=== PATIENT | male | born 1975 | race Caucasian/White ===

== ENCOUNTER 2017-03-15 02:43 | Emergency (ER) | payer SELFPAY ==
--- NOTE | 2017-03-15 03:02 | ERNOTE ---
Abdominal HPI - General Chief Complaint: Abdominal Pain Time Seen by Provider: 03/15/17 03:02 Source: patient, RN notes reviewed Exam Limitations: no limitations - Immun/Allergies/Home Medications Immunizatons: IMMUNIZATION HX Immunizations Up to Date Yes History of Influenza Vaccine No Hx Pneumococcal Vaccination No Allergies/Adverse Reactions: Allergies No Known Allergies Allergy (Unverified 03/15/17 02:55) Home Medications: HOME MEDICATIONS Lisinopril 20 mg PO DAILY #30 tablet 03/15/17 [Last Taken Unknown] Magnesium Citrate [Citrate of Magnesia] 300 ml PO ONCE #1 btl 03/15/17 [Last Taken Unknown] Omeprazole Magnesium [Prilosec Otc] 20 mg PO 03/15/17 [Last Taken Unknown] - History of Present Illness Narrative: Patient with abdominal pain since yesterday early afternoon. Still having vomiting. Has uncontrolled diabetes and hypertension, for which he has taken nothing for the last five years. Has had only a small bowel movement yesterday, with nothing for several days before that. Timing: constant, getting worse Quality: moderate, cramping, fullness Activities at Onset: none Modifying Factors - (Improves): Present: rest Modifying Factors - (Worsens): Present: sitting up, movement Associated Symptoms: Present: denies symptoms Review of Systems - Review of Systems Constitutional: Absent: recent illness, fever, chills EYE: Absent: eye pain ENT: Absent: ear pain, sore throat Respiratory: Absent: shortness of breath, cough Cardiology: Absent: chest pain, palpitations Gastrointestinal/Abdominal: Present: nausea, vomiting, constipation, abdominal pain. Absent: diarrhea Genitourinary: Absent: frequency, pain, dysuria Musculoskeletal: Present: no symptoms reported Skin: Present: no symptoms reported Neurological: Present: no symptoms reported Endocrine: Present: increased thirst Hematologic/Lymphatic: Present: no symptoms reported Psych: Present: depressed - Patient's Past Medical History Patient History - Medical: Anxiety, Diabetes Type 2, GERD Patient History - Cardiac/Respiratory: Hypertension Patient History - Cancer: No Hx of Cancer Patient History - Surgical Procedures: Orthopedic Patient History - Other: None - Social History Living Situations: parents Psych History: Hx of Anxiety Smoking Status: Never smoker Have you smoked in the past 12 months: No Do you dip or chew tobacco: No Alcohol Use: none Drug Use: none - Immunizations Immunizations Up to Date: Yes Hx Pneumococcal Vaccination: No History of Influenza Vaccine: No Physical Exam - Physical Exam General Appearance: Present: wd/wn, alert, moderate distress Head Exam: Present: normal inspection, no evidence of injury Eye Exam: Normal inspection: bilateral, PERRL: bilateral, EOMI: bilateral Ears, Nose, Throat: Present: normal ENT inspection, normal pharynx Neck: Present: normal inspection, nontender Respiratory: Present: no respiratory distress, normal breath sounds, no accessory muscle use, lungs clear Cardiovascular/Chest: Present: regular rate, rhythm, no murmur, normal peripheral pulses Gastrointestinal/Abdominal: Present: nontender, nondistended, soft, abnormal bowel sounds - decreased. Absent: normal bowel sounds Back Exam: Present: normal inspection, normal range of motion, no CVA tenderness , no vertebral tenderness Extremity Exam: Present: normal inspection, non-tender, normal range of motion, pedal edema - bilaterally Neurological Exam: Present: alert, oriented, normal mood/affect Skin Exam: Present: diaphoresis, pallor ED Progress - Results and Orders Patient's Lab Results:: I have reviewed the patient's lab results. Results and Orders: Hgb A1c shows terminal clerk uncontrolled blood sugars. - Vital Signs Patient's Vital Signs:: I have reviewed the patient's vital signs. Vital Signs: Vital Signs 03/15/17 02:48 Temperature 36.4 C L Pulse Rate 96 Respiratory 16 Rate Blood Pressure 183/110 O2 Sat by Pulse 95 Oximetry - Progress/Reassessment Chief Complaint: Abdominal Pain Plan - Plan Plan: Discussed at length with the patient about his uncontrolled diabetes, abdominal pain and constipation. I suspect a combination of diabetes, gastroenteritis and constipation. Counseled patient to follow up with whatever doctor helped him to feel good about trying to take care of himself and to get better care of his diabetes. Departure Clinical Impression: Gastroenteritis, Constipation by delayed colonic transit Diabetes type 2, uncontrolled Qualifiers: Diabetes mellitus complication status: with hyperglycemia Diabetes mellitus long-term insulin use: without terminal clerk use Qualified Code(s): E11.65 - Type 2 diabetes mellitus with hyperglycemia Hypertension Qualifiers: Hypertension type: essential hypertension Qualified Code(s): I10 - Essential ( primary) hypertension - Departure Disposition: Home self-care Condition: Good Instructions: Insulin Treatment for Diabetes, Diabetes and Foot Care, Constipation, Adult, [id number], Diabetes and Sick Day Management, Hyperglycemia, [id number], Rehydration, Adult Referrals: Internal Medicine [Provider Group] (Please find and establish with a local physician for further evaluation and treatment.) Prescriptions: Lisinopril 20 mg PO DAILY #30 tablet Magnesium Citrate [Citrate of Magnesia] 300 ml PO ONCE #1 btl
[2017-03-15 03:07] LABS: Urine Bilirubin Negative (NEGATIVE); Urine Blood Negative /ul (NEGATIVE); Urine Ketone Large mg/dL (NEGATIVE); Urine Nitrite Negative (NEGATIVE); Urine Protein 15 mg/dL (NEGATIVE); Urine Specific Gravity >=1.030 SP.GR. (1.005-1.030); Urine Urobilinogen Normal (NORMAL)
[2017-03-15 03:25] LABS: Hematocrit 46.4 % (42.0-52.0); Mean Cell Volume 85.3 fl (78-100); Mean Corpuscular Hemoglobin 29.4 pg (27-31); Mean Corpuscular Hgb Conc 34.5 g/dl (32-36); Mean Platelet Volume 11.7 fl (6.0-9.5); Neutrophil # 12.5 K/mm3 (1.3-6.0); Neutrophil % 82.1 % (42-75.0); Platelet Count 235 K/mm3 (150-450); Red Blood Count 5.44 M/mm3 (4.7-6.0); Red Cell Distribution Width 12.2 % (11.5-14.0); White Blood Count 15.3 K/mm3 (4.0-10.5)
[2017-03-15 03:32] LABS: Urine Appearance Clear; Urine Color Yellow
[2017-03-15 03:33] LABS: Urine Bacteria TRACE; Urine RBC None Seen /hpf (0-5); Urine WBC 0-5 /hpf (0-5)
[2017-03-15 03:36] LABS: Cocaine Ur Negative (NEGATIVE); Urine Barbiturate Negative (NEGATIVE); Urine Benzodiazepines Negative (NEGATIVE); Urine Opiates Negative (NEGATIVE); Urine PCP Negative (NEGATIVE); Urine THC Negative (NEGATIVE)
[2017-03-15 03:39] LABS: Albumin * 4.3 gm/dl (3.4-5.0); Anion Gap 16.3 mmol/L (6.8-13.8); BUN/Creatinine Ratio 16.7 (9.0-21.6); Ca. Corrected For Albumin 8.4 mg/dL (8.4-10.2); Carbon Dioxide 26.4 mmol/L (24-32.6); Potassium 3.7 mmol/L (3.4-4.6); Total Protein 8.5 gm/dL (6.2-8.2)
[2017-03-15] MEDS ORDERED: DIATRIZOATE MEGLUMINE, SODIUM 30 ML BTL PO ONE (03:47)
[2017-03-15] MEDS ORDERED: DIATRIZOATE MEGLUMINE, SODIUM 30 ML BTL ONE ×2 (03:47→05:27)
[2017-03-15] MEDS ORDERED: ONDANSETRON HCL/PF 2 MG/ML VIAL IV ONE (04:00)
[2017-03-15] MEDS ORDERED: ONDANSETRON HCL/PF 2 MG/ML VIAL ONE (04:01)
[2017-03-15 04:14] LABS: Hemoglobin A1C 10.8 % (4.00-6.0)
[2017-03-15] MEDS ORDERED: MORPHINE SULFATE 4 MG/ML SYRG IV ONE (04:33)
[2017-03-15] MEDS ORDERED: MORPHINE SULFATE 4 MG/ML SYRG ONE (04:35)
[2017-03-15] MEDS ORDERED: PROMETHAZINE HCL 25 MG/ML AMPUL IM ONE (05:22)
[2017-03-15] MEDS ORDERED: PROMETHAZINE HCL 25 MG/ML AMPUL ONE (05:22)
[2017-03-15] MEDS ORDERED: LISINOPRIL 10 MG TABLET PO ONE (05:50)
[2017-03-15] MEDS ORDERED: LISINOPRIL 10 MG TABLET ONE (05:50)
[2017-03-15 08:26] VITALS: BP 157/82
== END 2017-03-15 08:28 | disposition home or self-care (01) ==
LOC: ER 02:43
DX: K52.9 Noninfective gastroenteritis and colitis, unspecified (principal); K59.01 Slow transit constipation; E11.65 Type 2 diabetes mellitus with hyperglycemia; I10 Essential (primary) hypertension
CPT/HCPCS: 36415; 74020; 74177; 80053; 80307; 81001; 82150; 83036; 83690; 85025; 96372; 96374; 96375; 99284; J2405

== ENCOUNTER 2017-03-16 15:45 | Observation (INO) | payer SELFPAY ==
[2017-03-16] MEDS ORDERED: ONDANSETRON HCL/PF 2 MG/ML VIAL IV ONE (16:16)
[2017-03-16] MEDS ORDERED: NORMAL SALINE 1,000 ML IV ONE ×2 (16:16→17:57)
--- NOTE | 2017-03-16 16:17 | ERNOTE ---
Abdominal HPI - Narrative Date of Service: 03/16/17 - General Chief Complaint: Diabetes Related Problem Time Seen by Provider: 03/16/17 16:05 Source: patient, family, RN notes reviewed Exam Limitations: clinical condition - Immun/Allergies/Home Medications Immunizatons: IMMUNIZATION HX Immunizations Up to Date Yes History of Influenza Vaccine No Hx Pneumococcal Vaccination No Allergies/Adverse Reactions: Allergies No Known Allergies Allergy (Verified 03/16/17 15:54) Home Medications: HOME MEDICATIONS Lisinopril 20 mg PO DAILY #30 tablet 03/15/17 [Last Taken Unknown] Omeprazole Magnesium [Prilosec Otc] 20 mg PO 03/15/17 [Last Taken Unknown] - Pain Score Pain Score #1 Pain Score: 8 Abdominal Pain Onset Location: epigastric Pain Radiation: no radiation - History of Present Illness Narrative: Yogesh is a 41 year old male who returns to the ED with abdominal pain and vomiting after being seen early yesterday morning. His symptoms started on the afternoon of 03/14 and have persisted since. He has a 15,[address] showed mild thickening of the lower esophagus and stomach, as well as moderate stool retention. Despite having oral contrast for his CT scan and magnesium citrate, he has only passed a few small stools. He did not eat at all yesterday and has eaten very little today. Date (Duration): 03/14/17 Timing: constant Quality: severe, aching Activities at Onset: none Prior Abdominal Problems: Present: none Prior Treatment: Present: recently seen, treated by physician. Absent: currently on antibiotics Review of Systems - Review of Systems Constitutional: Present: fatigue, malaise EYE: Present: no symptoms reported ENT: Present: no symptoms reported Respiratory: Absent: shortness of breath, cough Cardiology: Absent: chest pain, palpitations, syncope Gastrointestinal/Abdominal: Present: nausea, vomiting, abdominal pain, eating less, drinking less. Absent: diarrhea Genitourinary: Absent: dysuria, hematuria Musculoskeletal: Absent: back pain, muscle pain Skin: Absent: rash, lesions Neurological: Present: dizziness/light-headedness. Absent: headache Endocrine: Present: no symptoms reported Hematologic/Lymphatic: Present: no symptoms reported Psych: Present: no symptoms reported - Patient's Past Medical History Patient History - Medical: Anxiety, Diabetes Type 2, GERD, Obesity Patient History - Cardiac/Respiratory: Hypertension Patient History - Cancer: No Hx of Cancer Patient History - Surgical Procedures: Orthopedic Patient History - Other: None - Social History Living Situations: home Psych History: Hx of Anxiety - Immunizations Immunizations Up to Date: Yes Hx Pneumococcal Vaccination: No History of Influenza Vaccine: No Physical Exam - Physical Exam General Appearance: Present: wd/wn, alert, moderate distress, obese Respiratory: Present: no respiratory distress, normal breath sounds, no accessory muscle use, lungs clear Cardiovascular/Chest: Present: no murmur, normal peripheral pulses, tachycardia Gastrointestinal/Abdominal: Present: normal bowel sounds, nondistended, soft, tenderness - Upper abdomen Back Exam: Present: normal inspection, no CVA tenderness Extremity Exam: Present: normal inspection, normal range of motion, no edema Neurological Exam: Present: alert, oriented, normal mood/affect, no motor/ sensory deficits Skin Exam: Present: diaphoresis, pallor ED Progress - Results and Orders Patient's Lab Results:: I have reviewed the patient's lab results. Results and Orders: Laboratory Tests 03/16/17 03/16/17 03/16/17 16:26 16:26 16:26 WBC 17.1 H RBC 5.83 Hgb 17.2 Hct 50.1 Plt Count 273 Neutrophils % 83.2 H Neutrophils # 14.2 H Sodium 135 Potassium 4.0 Chloride 95 L Carbon Dioxide 30.4 Anion Gap 13.6 BUN 24 H D Creatinine 0.88 Random Glucose 261 H Lactic Acid, Venous 1.7 Total Bilirubin 1.3 H AST 18 ALT 36 Alkaline Phosphatase 88 Amylase 32 Lipase 76 Urine Color Urine Appearance Urine pH Ur Specific [place] Urine Protein Urine Glucose (UA) Urine Ketones Urine Blood Urine Nitrate Urine Bilirubin Urine Ictotest Prot Sulfosalicylic Acd Urine Urobilinogen Ur Leukocyte Esterase Urine RBC Urine WBC Ur Epithelial Cells Urine Bacteria Urine Mucus Serum Ketones Positive - 10mg/dl H 03/16/17 16:32 WBC RBC Hgb Hct Plt Count Neutrophils % Neutrophils # Sodium Potassium Chloride Carbon Dioxide Anion Gap BUN Creatinine Random Glucose Lactic Acid, Venous Total Bilirubin AST ALT Alkaline Phosphatase Amylase Lipase Urine Color Estela Urine Appearance Slightly cloudy Urine pH 6.0 Ur Specific [place] 1.025 Urine Protein 15 H Urine Glucose (UA) >=1000 H Urine Ketones Large Urine Blood Negative Urine Nitrate Negative Urine Bilirubin 1 H Urine Ictotest Negative Prot Sulfosalicylic Acd 1+ Urine Urobilinogen Normal Ur Leukocyte Esterase Negative Urine RBC None seen Urine WBC 0-5 Ur Epithelial Cells 0-5 Urine Bacteria Trace Urine Mucus Trace Serum Ketones - Vital Signs Patient's Vital Signs:: I have reviewed the patient's vital signs. Vital Signs: Vital Signs 03/16/17 03/16/17 15:51 16:13 Temperature 36.6 C Pulse Rate 101 H 100 Respiratory 20 Rate Blood Pressure 186/101 O2 Sat by Pulse 96 Oximetry - X-Ray X-Ray #1 X-Ray: abdomen Interpretation: Reviewed by me X-ray Comments: Technique: Abdominal series (4 views) Comparison: CT dated March 15, 2017. Findings: Lung bases are clear. Scattered stool retention. The contrast column has progressed into the colon. No evidence of bowel obstruction. No pneumoperitoneum. No signs of mass or mass effect. No obvious urolithiasis. Degenerative changes. Impression: No evidence of bowel obstruction. Interval progression of the contrast column into the colon. Electronically signed by Jose Manning D.O.. - CT/Ultrasound CT/Ultrasound Narrative: Negative ultrasound of the gall bladder - Progress/Reassessment Chief Complaint: Diabetes Related Problem Progress:: Unchanged Plan - Plan Plan: The patient continued to have nausea and vomiting despite Zofran 8 mg IVP. He was then given Phenergan 25 mg IVPB and Toradol 30 mg. He is very groggy but reports that he does not feel much better. He has had 1 liter of NS. His WBC has increased from 15.2 to 17.3 today. His blood glucose was 261 with positive serum ketones. His abdominal xray was unremarkable aside from scattered retained stool. The gall bladder ultrasound was also unremarkable. The etiology of his pain remains unclear at this point and his nausea and vomiting have been difficult to control. Dr. Rodriguez was contacted regarding admitting the patient as observation status for IV fluids and meds to control his vomiting. His blood cultures are pending. Departure Clinical Impression: Abdominal pain of unknown cause Intractable vomiting with nausea Qualifiers: Vomiting type: unspecified Qualified Code(s): R11.2 - Nausea with vomiting, unspecified Leukocytosis Qualifiers: Leukocytosis type: unspecified Qualified Code(s): D72.829 - Elevated white blood cell count, unspecified - Departure Disposition: [facility] Condition: Fair
[2017-03-16] MEDS ORDERED: ONDANSETRON HCL/PF 2 MG/ML VIAL ONE ×2 (16:19→16:27)
[2017-03-16 16:31] LABS: Hematocrit 50.1 % (42.0-52.0); Hemoglobin 17.2 gm/dL (13.5-18.0); Mean Cell Volume 85.9 fl (78-100); Mean Corpuscular Hemoglobin 29.5 pg (27-31); Mean Corpuscular Hgb Conc 34.3 g/dl (32-36); Mean Platelet Volume 11.6 fl (6.0-9.5); Neutrophil # 14.2 K/mm3 (1.3-6.0); Neutrophil % 83.2 % (42-75.0); Platelet Count 273 K/mm3 (150-450); Red Blood Count 5.83 M/mm3 (4.7-6.0); Red Cell Distribution Width 12.2 % (11.5-14.0); White Blood Count 17.1 K/mm3 (4.0-10.5)
[2017-03-16 16:46] LABS: ALT 36 U/L (19-67); AST 18 U/L (0-48); Albumin * 4.2 gm/dl (3.4-5.0); Alkaline Phosphatase * 88 U/L (50-170); Amylase * 32 U/L (25-115); Anion Gap 13.6 mmol/L (6.8-13.8); BUN/Creatinine Ratio 27.3 (9.0-21.6); Bilirubin, Total 1.3 mg/dL (0.0-1.1); Blood Urea Nitrogen 24 mg/dL (6-23); Ca. Corrected For Albumin 8.4 mg/dL (8.4-10.2); Calcium * 8.9 mg/dL (7.9-10.9); Carbon Dioxide 30.4 mmol/L (24-32.6); Chloride 95 mmol/L (97-106); Glucose * 261 mg/dL (70-110); Lipase 76 U/L (73-393); Sodium 135 mmol/L (132-142); Total Protein 8.7 gm/dL (6.2-8.2)
[2017-03-16 16:51] LABS: Urine Bilirubin 1 mg/dl (NEGATIVE); Urine Blood Negative /ul (NEGATIVE); Urine Color Amber; Urine Ketone Large mg/dL (NEGATIVE); Urine Nitrite Negative (NEGATIVE); Urine Protein 15 mg/dL (NEGATIVE); Urine Specific Gravity 1.025 SP.GR. (1.005-1.030); Urine Urobilinogen Normal (NORMAL)
[2017-03-16 16:52] LABS: Urine Appearance Slightly Cloudy; Urine Bacteria TRACE; Urine Mucus TRACE; Urine RBC None Seen /hpf (0-5); Urine WBC 0-5 /hpf (0-5)
[2017-03-16] MEDS ORDERED: KETOROLAC TROMETHAMINE 30 MG/ML VIAL IV ONE (16:59)
[2017-03-16] MEDS ORDERED: PROMETHAZINE HCL 25 MG in DEXTROSE 5 % IN WATER 50 ML IV ONE ×2 (16:59)
[2017-03-16] MEDS ORDERED: KETOROLAC TROMETHAMINE 30 MG/ML VIAL ONE (17:47)
[2017-03-16] MEDS ORDERED: MAG HYDROX/ALUMINUM HYD/SIMETH 148 ML BTL PO ONE ×2 (20:44)
[2017-03-16] MEDS ORDERED: BELLADONNA ALKALOIDS/PHENOBARB 60 ML BTL PO ONE (20:44)
[2017-03-16] MEDS ORDERED: LIDOCAINE HCL 100 APPL BTL MM ONE (20:45)
[2017-03-16] MEDS ORDERED: INSULIN LISPRO 100 UNITS/ML VIAL SC SCH (21:00)
--- NOTE | 2017-03-16 21:12 | HP ---
Chief Complaint - Chief Complaint Date of Service: 03/16/17 Time of Service: 21:00 Chief Complaint: n/v/abd pain History of Present Illness: Pt is a 41 year old male with prior medical history significant for GERD, anxiety, DMII (not on any hypoglycemics), and recently diagnosed HTN. He was most recently seen 03/14/17 in the ER for mid epigastric pain and nausea that developed Friday afternoon, his work up included abdominal CT which showed: distal esophagus mucosal thickening and moderate stool retention,normal appendix , no evidence of obstruction. WBC 15k, he was diagnosed with constipation and HTN, sent home with mag citrate and Lisinipril. He presents again today with persistent n/v and abdominal pain. He is not able to keep any food down. Unable to identify any pain modifiers, maybe slight relief with deification. Rates pain a 8/10, cramping in nature, does not radiate. Took dulcolax and mag citrate prior to coming in without relief, last BM was Friday. Does endorse using stool softeners a few times over the past 6 months which is new, had diarrhea earlier this week, Denies any flank pain, hematauria, dysuria or polyuria. States he might have noted a little blood on his toilet paper Friday evening while in the ER, but otherwise no blood from rectum. No skin lesions, dental abscess, or other obvious forms of infection. Denies cough, SOB, or chest pain. Does not check sugars at home, was previously on metformin and ssi, but taken off "years ago." Hemoglobin A1c-10.8. His WBC increased to 17.1,other laboratory findings are listed below. He will be admitted to in patient observation over night for IV hydration, glucose stabilization, and pain control. Laboratory Tests 03/16/17 03/16/17 03/16/17 16:26 16:26 16:26 WBC 17.1 H Hgb 17.2 Hct 50.1 Plt Count 273 VBG pH Sodium 135 Potassium 4.0 Chloride 95 L Carbon Dioxide 30.4 Anion Gap 13.6 BUN 24 H D Creatinine 0.88 Random Glucose 261 H Lactic Acid, Venous 1.7 Calcium 8.9 Total Bilirubin 1.3 H AST 18 ALT 36 Alkaline Phosphatase 88 Troponin I Total Protein 8.7 H Amylase 32 Lipase 76 Urine Protein Urine Glucose (UA) Urine Ketones Urine Nitrate Ur Leukocyte Esterase Urine WBC Serum Ketones Positive - 10mg/dl H 03/16/17 03/16/17 03/16/17 16:26 16:32 20:45 WBC Hgb Hct Plt Count VBG pH 7.391 Sodium Potassium Chloride Carbon Dioxide Anion Gap BUN Creatinine Random Glucose Lactic Acid, Venous Calcium Total Bilirubin AST ALT Alkaline Phosphatase Troponin I 0.024 Total Protein Amylase Lipase Urine Protein 15 H Urine Glucose (UA) >=1000 H Urine Ketones Large Urine Nitrate Negative Ur Leukocyte Esterase Negative Urine WBC 0-5 Serum Ketones - Patient's Past Medical History Patient History - Medical: Anxiety, Diabetes Type 2, GERD, Obesity Patient History - Cardiac/Respiratory: Hypertension Patient History - Cancer: No Hx of Cancer Patient History - Surgical Procedures: Orthopedic - right shoulder Patient History - Other: None - Family History Mother Family History - Cardiac/Respiratory: Hypertension Father Family History - Medical: No pertinent hx - Social History Living Situations: alone Abuse History: No History of abuse Psych History: Hx of Anxiety Does anyone smoke in the home?: No Smoking Status: Never smoker Have you smoked in the past 12 months: No Do you dip or chew tobacco: No Alcohol Use: none Drug Use: none - Immunizations Immunizations Up to Date: Yes Hx Pneumococcal Vaccination: No History of Influenza Vaccine: No Review Of Systems (GEN) - Review of Systems Generalized/Overall Review: Present: Chills, Fatigue EENTM: Present: No Symptoms Reported Respiratory: Present: No Symptoms Reported Cardiac: Present: No Symptoms Reported Abdominal: Present: Nausea, Vomiting, Abdominal Pain, Constipation Genitourinary: Present: No Symptoms Reported Musculoskeletal: Present: No Symptoms Reported Neurological: Present: No Symptoms Reported Skin: Present: No Symptoms Reported Endocrine: Present: No Symptoms Reported Immunizations: IMMUNIZATION HX Immunizations Up to Date Yes History of Influenza Vaccine No Hx Pneumococcal Vaccination No Allergies/Adverse Reactions: Allergies Allergy/AdvReac Type Severity Reaction Status Date / Time No Known Allergies Allergy Verified 03/16/17 15:54 Home Medications: HOME MEDICATIONS Lisinopril 20 mg PO DAILY #30 tablet 03/15/17 [Last Taken Unknown] Omeprazole Magnesium [Prilosec Otc] 20 mg PO DAILY 03/15/17 [Last Taken Unknown] Exam - Exam Vital Signs: Vital Signs - Last Taken Temp 36.7 C 03/16/17 19:16 Pulse 98 03/16/17 19:16 Resp 20 03/16/17 19:16 BP 172/108 03/16/17 19:16 Pulse Ox 98 03/16/17 19:16 Diagnostic Studies: Laboratory Results Laboratory Tests 03/16/17 03/16/17 03/16/17 16:26 16:26 16:26 WBC 17.1 H Hgb 17.2 Hct 50.1 Plt Count 273 VBG pH Sodium 135 Potassium 4.0 Chloride 95 L Carbon Dioxide 30.4 BUN 24 H D Creatinine 0.88 Random Glucose 261 H Lactic Acid, Venous 1.7 Total Bilirubin 1.3 H AST 18 ALT 36 Alkaline Phosphatase 88 Troponin I Amylase 32 Lipase 76 Urine Protein Urine Glucose (UA) Urine Ketones Urine Nitrate Urine Bilirubin Urine WBC Serum Ketones Positive - 10mg/dl H 03/16/17 03/16/17 03/16/17 16:26 16:32 20:45 WBC Hgb Hct Plt Count VBG pH 7.391 Sodium Potassium Chloride Carbon Dioxide BUN Creatinine Random Glucose Lactic Acid, Venous Total Bilirubin AST ALT Alkaline Phosphatase Troponin I 0.024 Amylase Lipase Urine Protein 15 H Urine Glucose (UA) >=1000 H Urine Ketones Large Urine Nitrate Negative Urine Bilirubin 1 H Urine WBC 0-5 Serum Ketones 03/16/2017 Gallbladder U/S-neg 03/16/2017 Abd xray- no evidence of bowel obstruction Assessment/Plan - Assessment/Plan (1) Secondary DM with DKA, uncontrolled Assessment: Evidence of mild DKA-glucose 261, +serum and urine ketones although bicarb 30.4 , venous Ph 7.39, anion gap 10 he will still be worked up as such until clear source can be identified or otherwise ruled out. -NS 150ml/hr -low dose SSI -Accu checks ac/hs -NPO -CBC/CMP in am Problem: Suspected (2) Abdominal pain of unknown cause Assessment: As below with intractable vomiting and nausea. Problem: Acute (3) Intractable vomiting with nausea Assessment: Likely a component of mild DKA. Phenergan, Toradol,and Zofran have been ineffective at controlling this, will administer a GI cocktail and resume PPI in case this pain/nausea is related to an ulcer given pt history of GERD as well as start the pt on low dose SSI for glucose control. -low dose SSI -GI Cocktail x1 -NPO -PPI -NS 150ml/hr Problem: Acute Qualifiers: Vomiting type: unspecified Qualified Code(s): R11.2 - Nausea with vomiting , unspecified (4) Leukocytosis Assessment: No obvious source of infection, likely reactive d/t pt severe dehydration in the setting of DKA. BC sent, recheck labs in the am. Will continue to monitor for fever and other obvious forms of infection. -CMP in am -VS Q4H Problem: Acute Qualifiers: Leukocytosis type: unspecified Qualified Code(s): D72.829 - Elevated white blood cell count, unspecified (5) Constipation by delayed colonic transit Assessment: Unknown source at this time. Will continue to monitor for s/s of ilieus related to DKA. Will hold off on any further laxatives at this time. Problem: Acute (6) Hypertension Assessment: Pt recently started on lisinopril, BP elevated on admission, likely increased even more d/t pain. Will continue home dose and monitor for need to titrate. -Lisinopril 20mg QD -VS Q4H Problem: Acute Qualifiers: Hypertension type: essential hypertension Qualified Code(s): I10 - Essential (primary) hypertension (7) Dehydration Assessment: D/t n/v and poor oral intake. Received 1L bolus in ER, will continue with MIVF of NS @ 150ml/hr -NS 150ml/hr Problem: Acute
[2017-03-16] MEDS ORDERED: MAG HYDROX/ALUMINUM HYD/SIMETH 30 ML UDC ONE (21:45)
[2017-03-16] MEDS ORDERED: LIDOCAINE HCL 20 ML UDC ONE (21:45)
[2017-03-16] MEDS ORDERED: BELLADONNA ALKALOIDS/PHENOBARB 60 ML BTL ONE (21:47)
[2017-03-16] MEDS ORDERED: LISINOPRIL 10 MG TABLET ONE (22:07)
[2017-03-16] MEDS: LISINOPRIL 20 MG TABLET PO SCH (22:11)
[2017-03-17] MEDS ORDERED: ONDANSETRON HCL/PF 2 MG/ML VIAL IV PRN (02:03)
[2017-03-17 05:31] LABS: Hematocrit 46.3 % (42.0-52.0); Mean Cell Volume 85.7 fl (78-100); Mean Corpuscular Hemoglobin 29.6 pg (27-31); Mean Corpuscular Hgb Conc 34.6 g/dl (32-36); Mean Platelet Volume 11.4 fl (6.0-9.5); Neutrophil # 11.7 K/mm3 (1.3-6.0); Neutrophil % 80.2 % (42-75.0); Platelet Count 219 K/mm3 (150-450); Red Cell Distribution Width 11.9 % (11.5-14.0); White Blood Count 14.6 K/mm3 (4.0-10.5)
[2017-03-17 05:47] LABS: Albumin * 3.4 gm/dl (3.4-5.0); Anion Gap 11.6 mmol/L (6.8-13.8); BUN/Creatinine Ratio 28.6 (9.0-21.6); Bilirubin, Total 0.9 mg/dL (0.0-1.1); Ca. Corrected For Albumin 8.3 mg/dL (8.4-10.2); Calcium * 8.1 mg/dL (7.9-10.9); Carbon Dioxide 30.3 mmol/L (24-32.6); Potassium 3.9 mmol/L (3.4-4.6); Total Protein 7.3 gm/dL (6.2-8.2)
[2017-03-17] MEDS ORDERED: LISINOPRIL 20 MG TABLET PO ONE (06:00)
[2017-03-17] MEDS: INSULIN LISPRO 100 UNITS/ML VIAL SC SCH ×3 (06:31→17:33)
[2017-03-17] MEDS: diphenhydrAMINE HCL 50 MG/ML VIAL IV PRN ×2 (06:52→14:25)
[2017-03-17] MEDS: METOCLOPRAMIDE HCL 5 MG/ML VIAL IV PRN ×2 (06:52→14:25)
[2017-03-17] MEDS ORDERED: FLU VACC QS2017-18(6MOS UP)/PF 60 MCG/0.5 ML SYRINGE IM ONE (09:00)
[2017-03-17] MEDS ORDERED: PANTOPRAZOLE SODIUM 20 MG TABLET.DR PO SCH (09:00)
[2017-03-17] MEDS: LISINOPRIL 20 MG TABLET PO SCH (09:21)
[2017-03-17 14:34] VITALS: BP 188/106
--- NOTE | 2017-03-17 17:42 | DS ---
(1) Gastritis Problem: Acute (2) Diabetes type 2, uncontrolled Problem: Acute Qualifiers: Diabetes mellitus complication status: with hyperglycemia Diabetes mellitus local intermodal truck driver insulin use: without local intermodal truck driver use Qualified Code(s): E11.65 - Type 2 diabetes mellitus with hyperglycemia Description of Stay: Yogesh was a 41 yo diabetic patient who was admitted for elevated serum ketones. I believe due to gastritis he was having difficulty tolerating orals and was becoming dehydrated and on the verge of diabetic ketoacidosis. He had no evidence of acidosis on admission. He was hydrated and gastritis treated with pantoprazole. His nausea improved and he was taking orals better. He felt well enough for home discharge. He will be discharged to home on pantoprazole. He never did develop any metabolic acidosis during hospital course. Procedures Performed: none Discharge Disposition: Home self care Disposition: Home self-care Condition: Fair Discharge Activity: Activity as tolerated Discharge Diet: Clear Liquids - Advance to consistent carb diet as tolerated Referrals: Ender Rodriguez DO [Staff Physician] - 03/20/17 () Problem Oriented Discharge Instructions to Patient/Family: Gastritis, Adult, [id number] Additional Patient Instructions (free text): Avoid aspirin, aleve, ibuprofen, alcohol, or tobacco. [facility] will call you tomorrow with follow up appointment. Prescriptions (Any new or edited meds): Lisinopril 20 mg PO DAILY #30 tablet metFORMIN HCL [Glucophage] 1,000 mg PO BIDWM #60 tablet Metoclopramide HCl [Reglan] 10 mg PO QID PRN #60 tab PRN Reason: Nausea Pantoprazole Sodium 40 mg PO DAILY #30 tablet. Complete Home Medications List: Complete Home Medication List: Lisinopril 20 mg PO DAILY #30 tablet 03/17/17 Metoclopramide HCl [Reglan] 10 mg PO QID PRN #60 tab 03/17/17 Pantoprazole Sodium 40 mg PO DAILY #30 tablet. 03/17/17 metFORMIN HCL [Glucophage] 1,000 mg PO BIDWM #60 tablet 03/17/17
== END 2017-03-17 18:47 | disposition home or self-care (01) ==
LOC: ER 15:45 → MS 18:45
PROVIDERS: ADMIT Family Medicine; ATTEND Family Medicine
DX: K29.00 Acute gastritis without bleeding (principal); E11.10 Type 2 diabetes mellitus with ketoacidosis without coma; K59.00 Constipation, unspecified; I10 Essential (primary) hypertension; E86.0 Dehydration; K21.9 Gastro-esophageal reflux disease without esophagitis; F41.9 Anxiety disorder, unspecified; Z23 Encounter for immunization
CPT/HCPCS: 36415; 74020; 76705; 80053; 81001; 82009; 82150; 82800; 83605; 83690; 84484; 85025; 87040; 90471; 90686; 96361; 96365; 96372; 96375; 96376; 99285; G0378; J2405